=== PATIENT | female | born 1955 | race Caucasian/White ===

== ENCOUNTER 2023-11-13 13:20 | Emergency (ER) | payer MEDICARE ==
[~2023-11-13] VITALS: Ht 167.6 cm; Wt 83.9 kg
[2023-11-17] MEDS ORDERED: Bactrim Ds Tab1 EACH PO (12:21)
== END 2023-11-13 15:15 | disposition home or self-care (01) ==
LOC: ER 13:20
DX: H69.90 Unspecified Eustachian tube disorder, unspecified ear (principal); J02.9 Acute pharyngitis, unspecified; J06.9 Acute upper respiratory infection, unspecified; E11.9 Type 2 diabetes mellitus without complications; Z88.0 Allergy status to penicillin
CPT/HCPCS: 87081; 87430; 99283

== ENCOUNTER 2023-11-17 11:32 | Emergency (ER) | payer MEDICARE ==
[~2023-11-17] VITALS: Ht 167.6 cm; Wt 83.9 kg
[2023-11-17] MEDS ORDERED: Bactrim Ds Tab1 EACH PO ×2 (12:21→12:22)
== END 2023-11-17 12:23 | disposition home or self-care (01) ==
LOC: ER 11:32
DX: L02.212 Cutaneous abscess of back [any part, except buttock and flank] (principal); L72.3 Sebaceous cyst; E11.9 Type 2 diabetes mellitus without complications; Z88.0 Allergy status to penicillin
CPT/HCPCS: 99282